=== PATIENT | female | born 1945 | race Two or more races ===

== ENCOUNTER 2023-07-27 10:35 | Emergency (ER) | payer OTHER ==
[~2023-07-27] VITALS: Ht 154.9 cm; Wt 90.7 kg
[2023-07-27] MEDS ORDERED: TOPROL XL50 M1 PO (11:19)
[2023-07-27] MEDS ORDERED: METFORMIN HCL1000 M2 PO (11:19)
[2023-07-27] MEDS ORDERED: GLIPIZIDE XL10 MG PO (11:19)
[2023-07-27] MEDS ORDERED: ZESTRIL20 MG PO (11:19)
[2023-07-27] MEDS ORDERED: LIPITOR40 M1 PO (11:20)
[2023-07-27] MEDS ORDERED: LEVO-T75 MCG PO (11:20)
== END 2023-07-27 21:14 | disposition designated cancer center or children's hospital (05) ==
LOC: ER 10:35
PROVIDERS: Emergency Medicine
DX: N20.1 Calculus of ureter (principal); R10.9 Unspecified abdominal pain; E78.00 Pure hypercholesterolemia, unspecified; E03.9 Hypothyroidism, unspecified; I10 Essential (primary) hypertension; E11.9 Type 2 diabetes mellitus without complications; Z79.84 Long term (current) use of oral hypoglycemic drugs; Z20.822 Contact with and (suspected) exposure to COVID-19; N20.0 Calculus of kidney
CPT/HCPCS: 36415; 74177; 96365; 96366; 99285; Q9965